=== PATIENT | male | born 1975 | race Caucasian/White ===

== ENCOUNTER 2022-01-31 19:49 | Emergency (ER) | payer OTHER, SELFPAY ==
--- NOTE | 2022-01-31 19:51 | XRR_ITS ---
PROCEDURE INFORMATION: Exam: XR Chest Exam date and time: 01/31/2022 8:04 PM Age: 47 years old Clinical indication: Pain; Angina pectoris and chest pressure; Additional info: Cp TECHNIQUE: Imaging protocol: XR of the chest. Views: 1 view. COMPARISON: MRI Shoulder w/wo LEFT [id number] 09/10/2018 1:03 PM FINDINGS: Lungs: Unremarkable. No consolidation. Pleural spaces: Unremarkable. No pleural effusion. No pneumothorax. Heart/Mediastinum: Unremarkable. No cardiomegaly. Bones/joints: Unremarkable. XR/XR chest 1V portable [id number] IMPRESSION: No acute findings.
--- NOTE | 2022-01-31 19:51 | ECG_ITS ---
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 Measurements Intervals [place] Rate: 90 P: 28 [place]: 167 QRS: 22 QRSD: 99 T: 17 QT: 333 QTc: 408 Interpretive Statements SINUS RHYTHM NONSPECIFIC T-WAVE ABNORMALITY No previous ECG available for comparison Electronically Signed On 02-01-2022 18:33:15 CDT by Daniel Michaels M.D. [id number] f
[2022-01-31 20:06] VITALS: BP 208/120; PULSE 94; RESP 18; TEMP 36.7; O2SAT 96; BMI 37.3
--- NOTE | 2022-01-31 20:24 | ED_ITS ---
HPI - Chest Pain General: Chief Complaint: Chest Pain Stated Complaint: cp Time Seen by Provider: 01/31/22 20:12 Source: patient Mode of arrival: ambulatory Limitations: no limitations History of Present Illness: 47-year-old male who states been having left-sided chest pain over the last 6 hours. States been a sharp pain along with a pressure pain. States it is worse with palpation. He does have a history of high blood pressure. States the pain radiates to his neck and his left arm has some slight dyspnea with it as well. No history of heart disease. He is a non- smoker. Denies any cough or fevers. Associated symptoms: Deny abdominal pain, dyspnea, fever(s), nausea or vomiting Review of Systems Const: Denies: fever(s), chills, body aches or change in appetite Eyes: Denies: blurry vision or eye discomfort ENMT: Denies: throat pain or dental pain Card: Reports: chest pain Resp: Denies: dyspnea GI: Denies: abdominal pain, nausea, vomiting or diarrhea : Denies: dysuria Musc: Denies: neck pain or back pain Skin/Breast: Denies: rash Neuro: Denies: headache(s) Psych: Denies: depression Abram/Lymph: Denies: easy bruising All/Imm: Denies: urticaria PFSH ED PFSH: Medical History (Updated 01/31/22 @ 22:42 by Veronica Friedman MD) Hypertension Social History (Updated 01/31/22 @ 20:25 by Veronica Friedman MD) Smoking and tobacco status: never smoked Physical Exam Const: COMMON NORMALS: no acute distress, patient oriented x3 and healthy jon earing HENMT: COMMON NORMALS: normocephalic and atraumatic HEAD & SCALP: normocephalic and atraumatic Eye: COMMON NORMALS: Equal, round and reactive pupils present and EOMs intact bilaterally PUPIL: Yes Equal, round and reactive pupils present Neck/C-Spine: COMMON NORMALS: full ROM and supple Chest: COMMONS NORMALS: normal inspection of the chest and normal palpation of entire chest wall Resp: COMMON NORMALS: normal respiratory effort, No retractions, No use of accessory muscles and clear to auscultation bilaterally AUSCULTATION: clear to auscultation bilaterally Cardio: COMMON NORMALS: regular rate, regular rhythm and No murmurs present (Cardio) RATE: regular rate RHYTHM: regular rhythm GI: COMMON NORMALS: Normal to inspection, nondistended, normoactive bowel sounds present, Soft to palpation, non-tender and no masses PALPATION: Yes Soft to palpation Extremity: COMMON NORMALS: normal to inspection and full ROM Neuro: COMMON NORMALS: patient oriented x3, moves all extremities and no focal motor deficits Psych: COMMON NORMALS: mental status grossly normal, Normal thought process present and cooperative THOUGHT PROCESS: Normal thought process present Skin: COMMON NORMALS: no rashes or lesions noted and no wounds GENERAL SKIN EXAM: no rashes or lesions noted Course Vital Signs: Vital signs: Vital Signs Temperature 98.1 F 01/31/22 20:39 Pulse Rate 77 01/31/22 21:42 Respiratory Rate 16 01/31/22 21:42 Blood Pressure 146/91 01/31/22 21:42 Pulse Oximetry 95 01/31/22 21:42 MDM - Chest Pain Medical Decision Making Patient presents for chest pain atypical in nature he does have some tenderness to his left chest wall. Initial repeat troponin here negative his x-ray is normal as well. I did inform him like him to follow-up with cardiology he mendy kruger needs an outpatient stress test if he has any more episodes of chest pain he is return to ER for further evaluation he understands agrees to plan his D- dimer is negative no signs of pulmonary embolism or aortic dissection. Lab Data : 01/31/22 20:20 01/31/22 20:20 Radiology Impressions Chest X-Ray 01/31/22 19:51 IMPRESSION: No acute findings. Laboratory Results WBC 6.9 10^3/uL (4.0-10.0) 01/31/22 20:20 RBC 5.66 10^6/uL (4.1-5.3) H 01/31/22 20:20 Hgb 17.4 g/dL (11.7-16.6) H 01/31/22 20:20 Hct 50.8 % (42.0-52.0) 01/31/22 20:20 MCV 89.8 fl (80-94) 01/31/22 20:20 MCH 30.7 pg (28.0-34.0) 01/31/22 20:20 MCHC 34.3 g/dL (30.0-36.0) 01/31/22 20:20 RDW 13.5 % (12.1-15.1) 01/31/22 20:20 Plt Count 253 10^3/cmm (130-400) 01/31/22 20:20 MPV 9.6 fL (7.4-10.4) 01/31/22 20:20 Neut % (Auto) 51.0 % 01/31/22 20:20 Lymph % (Auto) 30.7 % 01/31/22 20:20 [place] % (Auto) 11.2 % 01/31/22 20:20 Eos % (Auto) 6.3 % 01/31/22 20:20 Baso % (Auto) 0.7 % 01/31/22 20:20 Neut # (Auto) 3.51 10^3/uL (1.8-7.7) 01/31/22 20:20 Lymph # (Auto) 2.1 10^3/uL (0.8-4.8) 01/31/22 20:20 [place] # (Auto) 0.8 10^3/uL (0.2-0.9) 01/31/22 20:20 Eos # (Auto) 0.4 10^3/uL (0.0-0.8) 01/31/22 20:20 Baso # (Auto) 0.1 10^3/uL (0.0-0.1) 01/31/22 20:20 Nucleated RBC % (auto) 0 % 01/31/22 20:20 Nucleated RBCs # 0.0 /100WBC 01/31/22 20:20 D-Dimer 0.33 ug/mIFEU (0-0.59) 01/31/22 20:20 Sodium 136 mmol/L (136-145) 01/31/22 20:20 Potassium 3.8 mmol/L (3.5-5.1) 01/31/22 20:20 Chloride 100 mmol/L (98-107) 01/31/22 20:20 Carbon Dioxide 24 mmol/L (22-29) 01/31/22 20:20 Anion Gap 15.8 (5-19) 01/31/22 20:20 BUN 13 mg/dL (6-20) 01/31/22 20:20 Creatinine 0.9 mg/dL (0.7-1.2) 01/31/22 20:20 GFR Calculation 90.4 mL/min (90-130) 01/31/22 20:20 Glucose 134 mg/dL (65-115) H 01/31/22 20:20 Calculated Osmolality 284 mOsm/kg (285-295) L 01/31/22 20:20 Calcium 9.3 mg/dL (8.5-10.5) 01/31/22 20:20 Total Bilirubin 0.2 mg/dL (0.15-1.2) 01/31/22 20:20 AST 26 U/L (0-40) 01/31/22 20:20 ALT 28 U/L (0-41) 01/31/22 20:20 Alkaline Phosphatase 67 IU/L (40-130) 01/31/22 20:20 Troponin T Baseline 16 ng/L (0-15) H 01/31/22 20:20 Troponin T 120 Minute 13.22 ng/L (0-15) 01/31/22 22:12 Delta Troponin T -2.78 ABS# (0-10) L 01/31/22 22:12 Total Protein 6.9 g/dL (6.6-8.7) 01/31/22 20:20 Albumin 4.5 g/dL (3.5-5.2) 01/31/22 20:20 Globulin 2.4 g/dL (1.3-4.6) 01/31/22 20:20 EKG Data EKG 1: I personally reviewed and interpreted this EKG as follows: EKG interpretation date: 01/31/22 EKG interpretation time: 19:56 Interpretation: nsr hr [address] or t wave abnormalities qrs 99 qtc 380 EKG 2: I personally reviewed and interpreted this EKG as follows: EKG interpretation date: 01/31/22 EKG interpretation time: 22:08 Interpretation: nsr hr [address] or t wave abnormalities qrs 98 qtc 370 Discharge Plan Discharge Patient Disposition: Home Clinical Impression: Chest pain Qualifiers: Chest pain type: unspecified Qualified Code(s): R07.9 - Chest pain, unspecified Prescriptions: No Action Aspir-81 81 mg Tablet,Delayed Release (Dr/Ec) 81 mg PO DAILY PRN (Reason: Chest Pain) 0RF lisinopril 2.5 mg Tablet 2.5 mg PO DAILY 0RF Discharge Orders: Discharge ED (Routine); Ordered 01/31/22 Ordered By: Veronica Friedman Referrals: Daniel Michaels M.D [Physician] - 1-3 days Discharge Diet: Advance as tolerated Discharge Activity: Resume usual activity Patient Instructions: Chest Pain (ED) Coding Level of Care Code ED Office Support Assistant for Chg Fwd Exam Comprehensive
[2022-01-31 20:31] LABS: Basophils # 0.1 10^3/uL (0.0-0.1); Basophils % 0.7 %; Eosinophils # 0.4 10^3/uL (0.0-0.8); Eosinophils % 6.3 %; Hematocrit 50.8 % (42.0-52.0); Hemoglobin 17.4 g/dL (11.7-16.6); Lymphocytes # 2.1 10^3/uL (0.8-4.8); Lymphocytes % 30.7 %; Mean Corpuscular HGB Conc 34.3 g/dL (30.0-36.0); Mean Corpuscular Hemoglobin 30.7 pg (28.0-34.0); Mean Corpuscular Volume 89.8 fl (80-94); Mean Platelet Volume 9.6 fL (7.4-10.4); Monocytes # 0.8 10^3/uL (0.2-0.9); Monocytes % 11.2 %; Neutrophils # 3.51 10^3/uL (1.8-7.7); Nucleated Red Blood Cells % 0 %; Platelet Count 253 10^3/cmm (130-400); Red Blood Count 5.66 10^6/uL (4.1-5.3); Red Cell Distribution Width 13.5 % (12.1-15.1); White Blood Count 6.9 10^3/uL (4.0-10.0)
[2022-01-31 20:39] VITALS: BP 176/101; PULSE 91; RESP 18; TEMP 36.7; O2SAT 96
[2022-01-31] MEDS: nitroglycerin 0.4 mg sublingual Tablet SUBLINGUAL (20:41)
[2022-01-31] MEDS: aspirin 81 mg Chew Tablet 324 MG PO (20:41)
[2022-01-31 21:03] LABS: Troponin(5th) Baseline 16 ng/L (0-15)
[2022-01-31 21:04] LABS: Alanine Aminotransferase 28 U/L (0-41); Albumin Level 4.5 g/dL (3.5-5.2); Alkaline Phosphatase 67 IU/L (40-130); Anion Gap 15.8 (5-19); Aspartate Amino Transferase 26 U/L (0-40); Blood Urea Nitrogen 13 mg/dL (6-20); Calcium 9.3 mg/dL (8.5-10.5); Carbon Dioxide 24 mmol/L (22-29); Chloride 100 mmol/L (98-107); Globulin 2.4 g/dL (1.3-4.6); Glomerular Filtration Rate 90.4 mL/min (90-130); Glucose 134 mg/dL (65-115); Osmolality Calculated 284 mOsm/kg (285-295); Potassium 3.8 mmol/L (3.5-5.1); Sodium 136 mmol/L (136-145); Total Bilirubin 0.2 mg/dL (0.15-1.2); Total Protein 6.9 g/dL (6.6-8.7)
[2022-01-31] MEDS: morphine 4 mg/mL SDV 1 mL IVP (21:41)
[2022-01-31 21:42] VITALS: BP 146/91; PULSE 77; RESP 16; O2SAT 95
[2022-01-31] MEDS: ondansetron 2 mg/ML SDV 2 mL 4 MG IVP (21:42)
[2022-01-31 21:45] LABS: D Dimer 0.33 ug/mIFEU (0-0.59)
--- NOTE | 2022-01-31 21:51 | ECG_ITS ---
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 Measurements Intervals [place] Rate: 70 P: 44 [place]: 187 QRS: 32 QRSD: 98 T: -11 QT: 349 QTc: 378 Interpretive Statements SINUS RHYTHM NONSPECIFIC T-WAVE ABNORMALITY No previous ECG available for comparison Electronically Signed On 02-01-2022 18:37:01 CDT by Daniel Michaels M.D. [id number]
[2022-01-31 22:32] LABS: Troponin 5 2HR 13.22 ng/L (0-15)
[2022-01-31 22:39] LABS: Troponin 5 2HR Delta -2.78 ABS# (0-10)
[2022-01-31 23:08] VITALS: BP 154/82; PULSE 73; RESP 16; O2SAT 96
--- NOTE | 2022-02-01 10:38 | DCPLANNER ---
Addendum entered by Isabela Liu 04/15/22 16:23: Patients appointment was cancelled Addendum entered by Isabela Liu 02/03/22 15:58: Patient has a follow up appointment scheduled for March at 2:[address] Michaels at [facility]. Clinic will call patient with appointment information. Original Note: manager of broadcast content had message to schedule a follow up appointment for patient with cardiology. manager of broadcast content sent patients information to the front office staff at [facility]. Patients information will be printed and reviewed. Clinic will call patient with appointment information.
== END 2022-01-31 23:10 | disposition home or self-care (01) ==
PROVIDERS: Emergency Provider Emergency Medicine
DX: R07.9 Chest pain, unspecified (principal); Z79.82 Long term (current) use of aspirin; I10 Essential (primary) hypertension
CPT/HCPCS: 71045; 80053; 84484; 85025; 85378; 93005; 96374; 96375; 99285; J2270; J2405

== ENCOUNTER 2024-08-19 22:20 | Emergency (ER) | payer BC, SELFPAY ==
--- NOTE | 2024-08-19 22:22 | ECG_ITS ---
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 Measurements Intervals [place] Rate: 81 P: 35 [place]: 186 QRS: 25 QRSD: 97 T: 30 QT: 382 QTc: 445 Interpretive Statements SINUS RHYTHM Compared to ECG 01/31/2022 22:08:58 T-wave abnormality no longer present Electronically Signed On 08-20-2024 17:45:56 SANDER WOODEN PENCILS by Nallely Goins M.D. [id number]
[2024-08-19 22:25] VITALS: BP 148/102; PULSE 82; RESP 22; TEMP 36.7; O2SAT 97; BMI 35.4
--- NOTE | 2024-08-19 22:41 | CTR_ITS ---
PROCEDURE INFORMATION: Exam: CT Chest Without Contrast; Diagnostic Exam date and time: 08/19/2024 10:50 PM Age: 49 years old Clinical indication: Shortness of breath; Chest wall pain; Additional info: Left chest wall pain bruising shortness of breath TECHNIQUE: Imaging protocol: Diagnostic computed tomography of the chest without contrast. Radiation optimization: All CT scans at this facility use at least one of these dose optimization techniques: automated exposure control; mA and/or kV adjustment per patient size (includes targeted exams where dose is matched to clinical indication); or iterative reconstruction. COMPARISON: CR XR chest 1V portable [id number] 01/31/2022 8:04 PM RADIATION DOSE METRICS: Total DLP (mGy-cm): 732.48 FINDINGS: Lungs: There is calcified granuloma left lower lobe. There is a 4.5 mm sized peripheral pulmonary nodule posterior left lower lobe image number 40 of series 3 and a 4 mm nodule posterior right lower lobe image number 37. For patients at low risk (minimal or absent history of smoking and of other known risk factors), no routine follow-up is indicated. For patients at high risk (history of smoking or of other known risk factors), consider optional CT Chest at 12 months. (Reference: Rhonda) Pleural spaces: There is no evidence of pneumothorax. There are no pleural effusions present. Heart: Heart is within normal limits of size. Coronary arteries: There is no evidence of atherosclerotic coronary artery calcifications. Lymph nodes: There is no evidence of lymphadenopathy. Vasculature: There is no thoracic aortic aneurysm. Liver: There is a diffuse decrease in hepatic parenchymal density, consistent with moderate fatty infiltration. Bones/joints: There is old healed fracture of the posterior right 11th rib. There is no evidence of acute fracture. Soft tissues: Unremarkable. CT/CT chest wo con [id number] IMPRESSION: No acute findings. REFERENCES: Rhonda Penny, et al. Guidelines for Management of Incidental Pulmonary Nodules Detected on CT Images: From the Fleischner Society 2017. Radiology. 2017;284(1):228-243.
[2024-08-19 22:42] VITALS: BP 136/98; PULSE 79; RESP 20; O2SAT 94
--- NOTE | 2024-08-19 22:42 | ED_ITS ---
HPI - Chest Pain 2 General: Chief Complaint: Chest Pain Stated Complaint: Chest Pains\Side Pains\BP High Time Seen by Provider: 08/19/24 22:30 History of Present Illness: Patient presents with left lateral chest wall pain and bruising her 20 takes a big deep breath twist move his RUE and touches the area. Patient feels like when he takes a big deep breath is about to have a muscle spasm and sharp stabbing pains in the area. 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 Patient is on a blood thinner and blood pressure medicine. Related Data Home Medications Medication Instructions Recorded Confirmed aspirin 81 mg tablet,delayed 81 mg PO DAILY PRN Chest Pain 01/31/22 01/31/22 release lisinopril 2.5 mg tablet 2.5 mg PO DAILY 01/31/22 01/31/22 Previous Rx's Medication Instructions Recorded hydrocodone 5 mg-acetaminophen 325 1 tab PO Q6H PRN pain #14 tabs 08/20/24 mg tablet Allergies Allergy/AdvReac Type Severity Reaction Status Date / Time No Known Allergies Allergy Unverified 01/31/22 20:30 Review of Systems 2 General: Reports: 10 or more systems reviewed and unremarkable except in HPI and below PFSH ED 2 PFSH: Medical History Hypertension Social History Smoking and tobacco/nicotine status: never used tobacco/nicotine Physical Exam 2 Const: COMMON NORMALS: no acute distress, average body habitus, patient oriented x3, no limitations, healthy appearing, alert and well nourished HENMT: COMMON NORMALS: normocephalic, atraumatic, hearing grossly normal bilaterally, external ears normal, Normal external nose present and moist oral mucous membranes HEAD & SCALP: normocephalic and atraumatic NOSE: Normal external nose present EXTERNAL EAR: Yes external ears normal Neck/C-Spine: COMMON NORMALS: no JVD Chest: COMMONS NORMALS: negative for normal inspection of the chest (Multiple bruising areas to left lateral chest wall) and negative for normal palpation of entire chest wall (Exquisite tenderness to palpation left lateral chest wall) Resp: COMMON NORMALS: normal respiratory effort, No retractions, No use of accessory muscles and clear to auscultation bilaterally AUSCULTATION: clear to auscultation bilaterally Cardio: COMMON NORMALS: no JVD, regular rate, regular rhythm, S1 normal heart sound present, S2 normal heart sound present, No gallops present (Cardio), No clicks present (Cardio), No murmurs present (Cardio) and No rub (Cardio) R ATE: regular rate RHYTHM: regular rhythm HEART SOUNDS: S1 normal heart sound present and S2 normal heart sound present GI: COMMON NORMALS: Normal to inspection, nondistended, normoactive bowel sounds present, Soft to palpation, non-tender, No hepatosplenomegaly present and no masses PALPATION: Yes Soft to palpation and Yes No hepatosplenomegaly present Neuro: COMMON NORMALS: patient oriented x3 SENSORIUM/ORIENTATION: Yes alert Course 2 Vital Signs: Vital signs: Vital Signs Temperature 98.0 F 08/19/24 22:25 Pulse Rate 76 08/20/24 01:14 Respiratory Rate 18 08/19/24 23:44 Blood Pressure 135/98 08/20/24 01:14 Pulse Oximetry 94 08/20/24 01:14 Oxygen Delivery Me thod Room Air 08/19/24 23:05 MDM - Chest Pain Medical Decision Making Patient has standard chest pain workup with a chest CT noncontrast, everything essentially came back normal. Patient clinically has a diagnosis of the rib fracture cartilage. Patient was given pain medicine which eased the pain somewhat. Patient be discharged on hydrocodone. Patient to follow-up with PCP within next 7 days. Medical Records I reviewed the patient's medical records. Lab Data I reviewed the patient's lab results. 08/19/24 22:47 08/19/24 22:[address] 08/19/24 22:41 IMPRESSION: No acute findings. REFERENCES: Rhonda H, et al. Guidelines for Management of Incidental Pulmonary Nodules Detected on CT Images: From the Fleischner Society 2017. Radiology. 2017;284(1):228-243. Laboratory Results WBC 5.66 10^3/uL (3.29-11.43) 08/19/24 22:47 RBC 4.76 10^6/uL (3.85-5.65) 08/19/24 22:47 Hgb 14.90 g/dL (11.27-16.99) 08/19/24 22:47 Hct 42.8 % (37-53) 08/19/24 22:47 MCV 89.9 fl (82-101) 08/19/24 22:47 MCH 31.3 pg (27-33) 08/19/24 22:47 MCHC 34.8 g/dL (30-55) 08/19/24 22:47 RDW 12.3 % (12.1-15.1) 08/19/24 22:47 Plt Count 251 10^3/cmm (157-399) 08/19/24 22:47 MPV 8.9 fL (7.4-10.4) 08/19/24 22:47 Neut % (Auto) 46.9 % 08/19/24 22:47 Lymph % (Auto) 35.7 % 08/19/24 22:47 [place] % (Auto) 13.4 % 08/19/24 22:47 Eos % (Auto) 2.5 % 08/19/24 22:47 Baso % (Auto) 1.1 % 08/19/24 22:47 Neut # (Auto) 2.66 10^3/uL (1.8-7.7) 08/19/24 22:47 Lymph # (Auto) 2.0 10^3/uL (0.8-4.8) 08/19/24 22:47 [place] # (Auto) 0.8 10^3/uL (0.2-0.9) 08/19/24 22:47 Eos # (Auto) 0.1 10^3/uL (0.0-0.8) 08/19/24 22:47 Baso # (Auto) 0.1 10^3/uL (0.0-0.1) 08/19/24 22:47 Nucleated RBC % (auto) 0 % 08/19/24 22:47 Nucleated RBCs # 0.0 /100WBC 08/19/24 22:47 Sodium 139 mmol/L (136-145) 08/19/24 22:47 Potassium 4.2 mmol/L (3.5-5.1) 08/19/24 22:47 Chloride 103 mmol/L (98-107) 08/19/24 22:47 Carbon Dioxide 23 mmol/L (22-29) 08/19/24 22:47 Anion Gap 17.2 (5-19) 08/19/24 22:47 BUN 12 mg/dL (6-20) 08/19/24 22:47 Creatinine 0.9 mg/dL (0.7-1.2) 08/19/24 22:47 GFR Calculation 89.7 mL/min (90-130) L 08/19/24 22:47 Glucose 107 mg/dL (65-115) 08/19/24 22:47 Calculated Osmolality 288 mOsm/kg (285-295) 08/19/24 22:47 Calcium 9.9 mg/dL (8.5-10.5) 08/19/24 22:47 Total Bilirubin 0.3 mg/dL (0.15-1.2) 08/19/24 22:47 AST 32 U/L (0-40) 08/19/24 22:47 ALT 38 U/L (0-41) 08/19/24 22:47 Alkaline Phosphatase 80 U/L (40-130) 08/19/24 22:47 Troponin T Baseline < 6 ng/L (0-15) 08/19/24 22:47 Troponin T 120 Minute 6.00 ng/L (0-15) 08/20/24 00:40 Delta Troponin T 0.05365 ABS# (0-10) 08/20/24 00:40 Total Protein 6.7 g/dL (6.6-8.7) 08/19/24 22:47 Albumin 4.6 g/dL (3.5-5.2) 08/19/24 22:47 Globulin 2.1 g/dL (1.3-4.6) 08/19/24 22:47 All radiology interpretation(s) finalized by discharge Discharge Plan Discharge Patient Disposition: Home Clinical Impression: Acute chest wall pain Condition: Stable Prescriptions: New hydrocodone-acetaminophen 5-325 mg tablet 1 tab PO Q6H PRN (Reason: pain) Qty: 14 0RF No Action Aspir-81 81 mg Tablet,Delayed Release (Dr/Ec) 81 mg PO DAILY PRN (Reason: Chest Pain) lisinopril 2.5 mg Tablet 2.5 mg PO DAILY Discharge Orders: Discharge ED (Routine); Ordered 08/20/24 Ordered By: Robin Gonzáles Referrals: Villagran,[place], [facility] ATTENDANT [Primary Care Provider] - 1 week Patient Instructions: Opioid Safety, Pain Management, Chest Pain - Chest Wall Activity Restrictions/Additional Instructions: Thank you for choosing [facility] for your healthcare needs today. Please realize that you were seen in the emergency department and that we are providing you with an emergency medical screening exam and this may not be a complete and all exclusive of all testing and/or medical workup we may need to determine your element or severity of your illness. It is very important that you follow-up as instructed with your primary care provider or specialist for the additional evaluation and to discuss your medical treatment plan. You may return to the emergency department should you have concerns or if your condition changes or worsens in any way. Coding Level of Care Code ED [facility] for Tawnya Dawn
[2024-08-19 22:54] LABS: Basophils # 0.1 10^3/uL (0.0-0.1); Basophils % 1.1 %; Eosinophils # 0.1 10^3/uL (0.0-0.8); Eosinophils % 2.5 %; Hematocrit 42.8 % (37-53); Lymphocytes % 35.7 %; Mean Corpuscular HGB Conc 34.8 g/dL (30-55); Mean Corpuscular Hemoglobin 31.3 pg (27-33); Mean Corpuscular Volume 89.9 fl (82-101); Mean Platelet Volume 8.9 fL (7.4-10.4); Monocytes # 0.8 10^3/uL (0.2-0.9); Monocytes % 13.4 %; Neutrophils # 2.66 10^3/uL (1.8-7.7); Neutrophils % 46.9 %; Nucleated Red Blood Cells % 0 %; Platelet Count 251 10^3/cmm (157-399); Red Blood Count 4.76 10^6/uL (3.85-5.65); Red Cell Distribution Width 12.3 % (12.1-15.1); White Blood Count 5.66 10^3/uL (3.29-11.43)
[2024-08-19] MEDS: ketorolac 30 mg/mL INJ IVP (23:01)
[2024-08-19 23:05] VITALS: BP 132/92; PULSE 81; O2SAT 94
[2024-08-19 23:15] LABS: Troponin(5th) Baseline < 6 ng/L (0-15)
[2024-08-19 23:16] LABS: Alanine Aminotransferase 38 U/L (0-41); Albumin Level 4.6 g/dL (3.5-5.2); Alkaline Phosphatase 80 U/L (40-130); Anion Gap 17.2 (5-19); Aspartate Amino Transferase 32 U/L (0-40); Blood Urea Nitrogen 12 mg/dL (6-20); Calcium 9.9 mg/dL (8.5-10.5); Carbon Dioxide 23 mmol/L (22-29); Chloride 103 mmol/L (98-107); Creatinine Clr Calc Pharmacy 124.4436; Globulin 2.1 g/dL (1.3-4.6); Glomerular Filtration Rate 89.7 mL/min (90-130); Glucose 107 mg/dL (65-115); Osmolality Calculated 288 mOsm/kg (285-295); Potassium 4.2 mmol/L (3.5-5.1); Sodium 139 mmol/L (136-145); Total Bilirubin 0.3 mg/dL (0.15-1.2); Total Protein 6.7 g/dL (6.6-8.7)
[2024-08-19 23:35] VITALS: BP 134/91; PULSE 79; O2SAT 96
[2024-08-19 23:44] VITALS: RESP 18; O2SAT 97
[2024-08-19] MEDS: ondansetron 2 mg/ML SDV 2 mL 4 MG IVP (23:44)
[2024-08-19] MEDS: morphine 4 mg/mL SDV 1 mL IVP (23:44)
[2024-08-20 00:30] VITALS: BP 134/98; PULSE 77; O2SAT 95
[2024-08-20 00:35] VITALS: BP 144/87; PULSE 78; O2SAT 92
--- NOTE | 2024-08-20 00:42 | ECG_ITS ---
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 Measurements Intervals [place] Rate: 79 P: 41 PA: 191 QRS: 32 QRSD: 99 T: 39 QT: 383 QTc: 440 Interpretive Statements SINUS RHYTHM Compared to ECG 08/19/2024 22:27:06 No significant changes Electronically Signed On 08-20-2024 17:50:43 RESTAURANT ATTENDANT by Nallely Goins M.D. [id number]
[2024-08-20 01:00] LABS: Troponin 5 2HR Delta 0.00001 ABS# (0-10)
[2024-08-20] MEDS: HYDROcodone-acetaminophen 5-325 mg Tablet 1 TAB PO ×2 (01:05→01:45)
[2024-08-20 01:14] VITALS: BP 135/98; PULSE 76; O2SAT 94
[2024-08-20 01:52] VITALS: BP 125/92; PULSE 74; O2SAT 96
== END 2024-08-20 01:54 | disposition home or self-care (01) ==
PROVIDERS: Emergency Provider Emergency Medicine; PCP Nurse Practitioner Family
DX: R07.9 Chest pain, unspecified (principal); I10 Essential (primary) hypertension
CPT/HCPCS: 36415; 71250; 80053; 84484; 85025; 93005; 96374; 96375; 99285; J1885; J2270; J2405

== ENCOUNTER 2024-11-05 13:02 | Emergency (ER) | payer BC, SELFPAY ==
[2024-11-05 13:11] VITALS: BP 144/84; PULSE 88; TEMP 36.8; O2SAT 95; BMI 34.1
--- NOTE | 2024-11-05 14:19 | XRR_ITS ---
PROCEDURE INFORMATION: Exam: XR Soft Tissue Neck Exam date and time: 11/05/2024 2:29 PM Age: 49 years old Clinical indication: Neck pain; Additional info: Piece of metal in neck/chin? TECHNIQUE: Imaging protocol: Radiologic exam of the soft tissues of the neck. COMPARISON: CT chest wo con [id number] 08/19/2024 10:50 PM FINDINGS: Airway: Normal. No abnormal narrowing. Soft tissues: There is a 0.6 cm foreign body inferior and to the left of the midline mandible. Bones/joints: Degenerative change is identified in the spine. There is disc space narrowing and osteophyte formation especially at C5/6 and C6/7. XR/XR soft tissue neck [id number] IMPRESSION: There is a 0.6 cm foreign body inferior and to the left of the midline mandible.
--- NOTE | 2024-11-05 14:20 | W.ED.NECK ---
HPI - Neck Pain/Injury General: Chief Complaint: Neck Pain/Injury Stated Complaint: piece of metal in throat Time Seen by Provider: 11/05/24 14:08 Source: patient Mode of arrival: ambulatory Limitations: no limitations History of Present Illness: Patient is a 49-year-old male presents to ED today for evaluation of a piece of metal that is stuck in his neck. Patient states yesterday he was using a sledgehammer on metal when a piece came back and flicked him in the neck. Patient did notice a small cut that has since scabbed. Patient feels like he has a piece of embedded metal in his neck that he can feel. He reportedly did place a magnet to the area and it stuck confirming the presence of metal. Tetanus is up-to-date. MD complaint: neck pain Onset (ago): day(s) Place: home Severity: mild Relieving factors: none Exacerbating factors: none Associated symptoms: Reports no associated symptoms Treatments prior to arrival: none Related Data Home Medications ?Medication ?Instructions ?Recorded ?Confirmed albuterol sulfate 90 mcg/actuation 2 inh inhalation Q4H 11/05/24 11/05/24 aerosol inhaler amlodipine 10 mg tablet 10 mg PO DAILY 11/05/24 11/05/24 budesonide-formoterol HFA 160 2 puff inhalation BID 11/05/24 11/05/24 mcg-4.5 mcg/actuation aerosol inhaler (Symbicort) losartan 50 mg tablet 50 mg PO DAILY 11/05/24 11/05/24 Previous Rx's ?Medication ?Instructions ?Recorded cephalexin 500 mg capsule 500 mg PO Q6H 7 days #28 caps 11/05/24 Allergies Allergy/AdvReac Type Severity Reaction Status Date / Time No Known Allergies Allergy Verified 11/05/24 13:19 Review of Systems Musc: Reports: neck pain Skin/Breast: Reports: other (piece of metal in neck) [facility] ED PFSH: Medical History Hypertension Social History Smoking and tobacco/nicotine status: never used tobacco/nicotine Physical Exam Const: COMMON NORMALS: no acute distress, no limitations, alert and well nourished HENMT: FACE & SINUS IMAGES:  1. feels like piece of metal is stuck in his neck Neuro: SENSORIUM/ORIENTATION: Yes alert Course Vital Signs: Vital signs: Vital Signs Temperature 98.3 F 11/05/24 13:11 Pulse Rate 88 11/05/24 13:11 Blood Pressure 144/84 11/05/24 13:11 Pulse Oximetry 95 11/05/24 13:11 Oxygen Delivery Me thod Room Air 11/05/24 13:11 MDM - Neck Pain/Injury Medical Decision Making 5-6mm metal foreign body present to anterior tissue of neck. At this time I do not feel comfortable digging around for this. From an ED standpoint, there is no indication for emergent removal. Discussed how it will do 1 of 3 things: 1) calcify and stay indefinitely 2) will eventually work its way to the surface and expel itself 3) become infected (least likely and why we place on prophylactic antibiotics). Patient feels comfortable with plan at this time. His tetanus is up-to-date. We did discuss down the road if this continues to bother him, he could see ENT to discuss whether they would potentially remove it Medical Records I reviewed the patient's medical records. Lab Data I reviewed the patient's lab results. XR interpretation done by ED provider, pending radiology final review Discharge Plan Discharge Patient Disposition: Home Clinical Impression: Metal foreign body in anterior region of neck Condition: Stable Prescriptions: New cephalexin 500 mg capsule 500 mg PO Q6H 7 Days Qty: 28 0RF No Action losartan 50 mg tablet 50 mg PO DAILY amlodipine 10 mg tablet 10 mg PO DAILY albuterol sulfate 90 mcg/actuation HFA aerosol inhaler 2 inh INHALATION Q4H budesonide-formoterol [Symbicort] 160-4.5 mcg/actuation HFA aerosol inhaler 2 puff INHALATION BID Discharge Orders: Discharge ED (Routine); Ordered 11/05/24 Ordered By: Lisset Galindo Referrals: Sheridan Villagran APN [Primary Care Provider] - Patient Instructions: Soft Tissue Foreign Body (ED) Activity Restrictions/Additional Instructions: As we discussed, there is no emergent indication to remove foreign body at this time. Will cover you with antibiotics. Monitor area closely for worsening pain, swelling, discharge, redness/warmth, fevers, etc. Seek medical re-evaluation if these occur. If area continues to bother you, you could schedule appointment with ENT to discuss removal. Print Language: Slovenian Coding Level of Care Code ED Electronics Supervisor for Tawnya Dawn
[2024-11-05 16:01] VITALS: BP 141/86; PULSE 86; RESP 16; O2SAT 97
== END 2024-11-05 15:51 | disposition home or self-care (01) ==
PROVIDERS: Emergency Provider Physician Assistant; PCP Nurse Practitioner Family
DX: S10.85XA Superficial foreign body of other specified part of neck, initial encounter (principal); W45.8XXA Other foreign body or object entering through skin, initial encounter; I10 Essential (primary) hypertension
CPT/HCPCS: 70360; 99283